=== PATIENT | female | born 1950 | race Caucasian/White ===

== ENCOUNTER 2017-04-23 16:40 | Emergency (ER) | payer MEDICARE, OTHER ==
[2017-04-23 17:03] VITALS: BP 114/71
--- NOTE | 2017-04-23 20:18 | ED Physician Documentation ---
PD HPI SKIN - Stated complaint Stated Complaint: RT UE BUG BITE - Chief complaint Chief Complaint: Wound - History obtained from History obtained from: Patient - History of Present Illness Timing - onset: How many days ago (3) Timing - duration: Days Timing - details: Gradual onset, Still present (she has had area of redness, with some itching at first and then tenderness for couple of days. It has gotten more redness and some swelling of the area today. No drainage. Unaware of initial cause, but presumed it was a bugbite or such. She had been working out in the garden prior to onset.) Contributing factors: No: Recent illness Similar symptoms before: Has not had sx before Review of Systems Constitutional: denies: Fever, Chills Throat: denies: Sore throat Respiratory: denies: Dyspnea, Cough GI: denies: Nausea, Vomiting PD PAST MEDICAL HISTORY - Past Medical History Past Medical History: No Cardiovascular: None Respiratory: None Neuro: None Endocrine/Autoimmune: None - Past Surgical History Past Surgical History: Yes General: Gastric surgery, Hiatal hernia repair Ortho: Knee replacement, Arthroscopic surgery HEENT: Tonsil/Adenoidectomy - Present Medications Home Medications: Ambulatory Orders Medication Instructions Recorded Confirmed Betamethasone Dipropionate 1 applic TP TID #15 cream..g. 04/23/17 Levothyroxine Sodium [Levoxyl] 04/23/17 Lovastatin [Altoprev] 20 mg PO DAILY 04/23/17 04/23/17 Mupirocin 1 applic TP TID #15 oint...g. 04/23/17 Sulfamethox/Trimeth 800/160 1 each PO BID #14 tablet 04/23/17 [Bactrim Ds 800/160] - Allergies Allergies/Adverse Reactions: Allergies Allergy/AdvReac Type Severity Reaction Status Date / Time adhesive tape Allergy Itching Verified 04/23/17 17:03 Penicillins Allergy Unknown Verified 04/23/17 17:03 - Social History Does the pt smoke?: No Smoking Status: Never smoker Does the pt drink ETOH?: No Does the pt have substance abuse?: No - Immunizations Immunizations are current?: Yes - POLST Patient has POLST: No PD ED PE NORMAL - Vitals Vital signs reviewed: Yes - General General: Alert and oriented X 3, Well developed/nourished - Derm Derm: Normal color, Warm and dry, Other (right ulnar side forearm with rounded area of redness with local tenderness. There is some warmth locally. No proximal streaking. No fluctuance nor drainage. ) - Extremities Extremities: Normal ROM s pain - Neuro Neuro: Alert and oriented X 3, No motor deficit, No sensory deficit Results - Vitals Vitals: Oxygen O2 Source Room air PD MEDICAL DECISION MAKING - ED course Complexity details: considered differential (nonspecific skin rash area that could be bite reaction, dermatitis or developing local infection. ), d/w patient Departure - Departure Disposition: 01 Home, Self Care Clinical Impression: Skin infection, Skin rash Condition: Stable Record reviewed to determine appropriate education?: Yes Instructions: ED Staph Infec Abx Tx Only, ED Dermatitis Non Specific Rash Prescriptions: Sulfamethox/Trimeth 800/160 [Bactrim Ds 800/160] 1 each PO BID #14 tablet Betamethasone Dipropionate 1 applic TP TID #15 cream..g. Mupirocin 1 applic TP TID #15 oint...g. Comments: Cleanse the area with soap and water three times daily. Use then the betamethasone steroid cream and the mupirocin antibiotic cream to the area. Also take oral Bactrim antibiotic twice daily for several days until improved. This will treat for local reaction as well as possible developing infection too. Recheck if not improved over the next 2-3 days, sooner if worse. Discharge Date/Time: 04/23/17 20:59
[2017-04-23] MEDS ORDERED: MUPIROCIN 2% OINT 1 GM TOP STA (20:29)
[2017-04-23] MEDS ORDERED: SULFAMETH/TRIMETH DS 800/160 MG TABLET PO STA (20:29)
[2017-04-23] MEDS ORDERED: DEXAMETHASONE 10 MG/ML VIAL PO STA (20:29)
[2017-04-23] MEDS ORDERED: CHERRY SYRUP 10 ML UDC PO ONE (20:42)
[2017-04-23] MEDS ORDERED: SULFAMETH/TRIMETH DS 800/160 MG TABLET PO ONE (20:42)
[2017-04-23] MEDS ORDERED: MUPIROCIN 2% OINT 1 GM ONE (20:43)
[2017-04-23] MEDS ORDERED: DEXAMETHASONE 10 MG/ML VIAL ONE (20:43)
[2017-04-23] MEDS ORDERED: SULFAM/TRIM 800/160 Prepack 2 PO ONE ×2 (20:54→21:03)
== END 2017-04-23 20:59 | disposition home or self-care (01) ==
LOC: ED 16:40
DX: L08.9 Local infection of the skin and subcutaneous tissue, unspecified (principal); R21 Rash and other nonspecific skin eruption
CPT/HCPCS: 99283; A9270